=== PATIENT | male | born 1990 | race Caucasian/White ===

== ENCOUNTER 2017-11-15 03:03 | Emergency (ER) | payer BC ==
[~2017-11-15] VITALS: Ht 188 cm; Wt 72.6 kg
[2017-11-15 03:15] VITALS: BP 112/70
== END 2017-11-15 05:30 | disposition home or self-care (01) ==
LOC: ER 03:05
DX: S90.32XA Contusion of left foot, initial encounter (principal); W20.8XXA Other cause of strike by thrown, projected or falling object, initial encounter; Y93.89 Activity, other specified; Y92.89 Other specified places as the place of occurrence of the external cause; Y99.8 Other external cause status
CPT/HCPCS: 73630; 99284; A4606; Z7610